=== PATIENT | female | born 1990 | race Asian ===

== ENCOUNTER 2022-05-02 13:40 | Emergency (ER) | payer OTHER, SELFPAY ==
[2022-05-02 13:53] VITALS: BP 120/70; PULSE 95; RESP 15; TEMP 36.7; O2SAT 100; BMI 27.4
[2022-05-02 14:13] LABS: UR Morphine/Opiate cutoff 300 Negative (Negative); Ur Creatinine Normal (Normal); Ur Specific Gravity Normal (Normal); Urine Amphetamines Negative (Negative); Urine Barbiturates Negative (Negative); Urine Benzodiazepines Negative (Negative); Urine Cocaine Negative (Negative); Urine MDMA Negative (Negative); Urine Methadone Negative (Negative); Urine Methamphetamines Negative (Negative); Urine Oxycodone Negative (Negative); Urine Phencyclidine Negative (Negative); Urine Tetrahydrocannabinol Negative (Negative); Urine Tricyclic Antidepressant Negative (Negative); Urine pH Normal (Normal)
[2022-05-02 14:23] LABS: Bacteria Urine Occasional (0-1); Culture Indicated Urine Specimen Cultured; RBC Urine None Seen (0-5/HPF); WBC Urine 0-1/HPF (0-5/HPF)
[2022-05-02 14:33] LABS: Add Manual Diff / Slide Review NO; Basophils Absolute Auto 0 /uL (0-100); Basophils Percent Auto 0.3 % (0-2); Eosinophils Absolute Auto 0 /uL (0-450); Eosinophils Percent Auto 0.8 % (2-4); Hematocrit 37.3 % (36-46); Hemoglobin 12.9 g/dL (12.0-16.0); Lymphocytes Absolute Auto 1900 /uL (1100-4500); Lymphocytes Percent Auto 32.1 % (25-40); Mean Corpuscular HGB Conc 34.7 % (30-36); Mean Corpuscular Volume 86.5 fL (80-100); Monocytes Absolute Auto 400 /uL (0-900); Monocytes Percent Auto 6.2 % (3-14); Neutrophils Absolute Auto 3500 /uL (1500-7000); Neutrophils Percent Auto 60.6 % (50-75); Platelet Count 202 X10^3/uL (150-400); Red Blood Cell Count 4.31 X10^6/uL (4.0-5.2); Red Cell Distribution Width 13.2 % (11.6-14.8); White Blood Cell Count 5.8 X10^3/uL (4.5-11.0)
--- NOTE | 2022-05-02 14:41 | ED_ITS ---
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 States that several months ago she started having thoughts of hurting herself. States she actually tried to kill herself by cutting her left wrist. She did not seek help during this time. Since that event she has followed up with [place] mental health department [place] [employer] [place]. She states she was not given any medication and cares no specific diagnoses. She is never been on any medication or had a mental health diagnosis in the past. Since following up with the mental health provider she has had other episodes of anxiety and depression and thoughts of hurting herself. She has [place] up with the director financial systems [place] Was last week after an event where her suicide ideations came back. Two days ago she found out that she was . This is her 2nd . She did tell the father the baby and she stated that the father baby wants nothing to do with this . That triggered more events over the past couple days. She denied any specific intent of hurting herself although she states she feels very unsafe at home and concern that she may act out on her thoughts. Related Data Allergies Allergy/AdvReac Type Severity Reaction Status Date / Time No Known Drug Allergies Allergy Verified 05/02/22 13:53 Review of Systems Review of Systems ROS Unobtainable: All systems reviewed & are unremarkable except as noted in HPI and below Patient History Medical History Healthy adult Social History Smoking Status: Former smoker Smoking Status: Former smoker alcohol intake frequency: holidays/special occasions only Substance Use Type: does not use Exam Initial Vital Signs Initial Vital Signs: Vital Signs Temperature 98.1 F 05/02/22 13:53 Pulse Rate 95 H 05/02/22 13:53 Respiratory Rate 15 05/02/22 13:53 Blood Pressure 120/70 05/02/22 13:53 Pulse Oximetry 100 05/02/22 13:53 Oxygen Delivery Method 05/02/22 13:53 Const General: cooperative, comfortable, well developed and No ill appearing HENNM Head: normal to inspection and normocephalic Resp Effort & Inspection: normal respiratory effort Auscultation: clear to auscultation bilaterally Cardio Rate: regular rate Rhythm: regular rhythm GI Inspection: normal to inspection Skin General: no rashes or lesions noted Neuro General: patient alert, patient awake, patient oriented x3 and moves all extremities Extrem General: normal to inspection and capillary refill normal Psych Appearance: grossly normal and well kempt Mental Status: mental status grossly normal Mood: congruent mood Affect: normal affect Attitude: cooperative Course Orders Ordered: ED Orders 05/02/22 14:00 Urine Culture Stat Urine Drug Screen, Rapid Stat Urine Microscopic Stat 05/02/22 14:21 Acetaminophen Stat Complete Blood Count AUTO DIFF Stat Comprehensive Metabolic Panel Stat Ethanol (ETOH) Stat Free T4, Direct Thyroxine Stat HCG Quantitative /Beta subunit Stat Salicylate Stat Thyroid Stimulating Hormone Stat 05/02/22 15:02 Consult to [facility] [place] - Alligator Trapper Stat 05/02/22 15:34 COVID19 -Nasal RAPID/Pre-Proc Stat Vital Signs Vital signs: Vital Signs - 8 hr 05/02/22 13:53 Temperature 98.1 F Pulse Rate 95 H Respiratory Rate 15 Blood Pressure 120/70 Pulse Oximetry 100 Oxygen Delivery Method Room Air MDM - Psych Lab Data Attestation: I reviewed the patient's lab results. Result diagrams: 05/02/22 14:21 05/02/22 14:21 Labs: Lab Results 05/02/22 05/02/22 05/02/22 Range/Units 14:00 14:00 14:21 WBC 5.8 (4.5-11.0) X10^3/uL RBC 4.31 (4.0-5.2) X10^6/uL Hgb 12.9 (12.0-16.0) g/dL Hct 37.3 (36-46) % MCV 86.5 (80-100) fL MCH 30.0 (26-34) PG MCHC 34.7 (30-36) % RDW 13.2 (11.6-14.8) % Plt Count 202 (150-400) X10^3/uL Neut % (Auto) 60.6 (50-75) % Lymph % (Auto) 32.1 (25-40) % [place] % (Auto) 6.2 (3-14) % Eos % (Auto) 0.8 L (2-4) % Baso % (Auto) 0.3 (0-2) % Neut # (Auto) 3500 (7491-2982) /uL Lymph # (Auto) 1900 (5555-6231) /uL [place] # (Auto) 400 (0-900) /uL Eos # (Auto) 0 (0-450) /uL Baso # (Auto) 0 (0-100) /uL Sodium (137-145) mmol/L Potassium (3.4-5.1) mmol/L Chloride (98-107) mmol/L Carbon Dioxide (22-32) mmol/L BUN (7-17) mg/dL Creatinine (0.52-1.04) mg/dL Estimated GFR (>60) mL/min BUN/Creatinine Ratio (6-22) Glucose (70-100) mg/dL Calcium (8.4-10.2) mg/dL Total Bilirubin (0.2-1.3) mg/dL AST (14-36) IU/L ALT (<35) IU/L Alkaline Phosphatase (38-126) U/L Total Protein (6.3-8.2) g/dL Albumin (3.5-5.0) g/dL Globulin (1.7-4.1) g/dL Albumin/Globulin Ratio (1.0-2.8) TSH (0.47-4.68) uIU/mL Free T4 (0.78-2.19) ng/dL HCG, Quant mIU/mL Urine RBC None seen (0-5/HPF) Urine WBC 0-1/hpf (0-5/HPF) Urine Bacteria Occasional (0-1) (None) Ur Culture Indicated? Specimen cultured Salicylates (<20) mg/dL U Opiates 300ng/mL cut Negative (Negative) Ur Oxycodone Screen Negative (Negative) Urine Methadone Screen Negative (Negative) Acetaminophen (10-30) ug/mL Ur Barbiturates Screen Negative (Negative) U Tricyclic Antidepress Negative (Negative) Ur Phencyclidine Scrn Negative (Negative) Ur Amphetamines Screen Negative (Negative) U Methamphetamines Scrn Negative (Negative) Ur MDMA Scrn (Ecstasy) Negative (Negative) U Benzodiazepines Scrn Negative (Negative) Urine Cocaine Screen Negative (Negative) U Marijuana (THC) Screen Negative (Negative) Ethyl Alcohol ( - 10) mg/dL SARS-CoV-2 (PCR) (Negative) 05/02/22 05/02/22 05/02/22 Range/Units 14:21 14:21 14:21 WBC (4.5-11.0) X10^3/uL RBC (4.0-5.2) X10^6/uL Hgb (12.0-16.0) g/dL Hct (36-46) % MCV (80-100) fL MCH (26-34) PG MCHC (30-36) % RDW (11.6-14.8) % Plt Count (150-400) X10^3/uL Neut % (Auto) (50-75) % Lymph % (Auto) (25-40) % [place] % (Auto) (3-14) % Eos % (Auto) (2-4) % Baso % (Auto) (0-2) % Neut # (Auto) (4127-1216) /uL Lymph # (Auto) (7853-5896) /uL [place] # (Auto) (0-900) /uL Eos # (Auto) (0-450) /uL Baso # (Auto) (0-100) /uL Sodium 135 L (137-145) mmol/L Potassium 3.5 (3.4-5.1) mmol/L Chloride 99 (98-107) mmol/L Carbon Dioxide 26 (22-32) mmol/L BUN 6 L (7-17) mg/dL Creatinine 0.60 (0.52-1.04) mg/dL Estimated GFR > 60 (>60) mL/min BUN/Creatinine Ratio 10.0 (6-22) Glucose 99 (70-100) mg/dL Calcium 9.0 (8.4-10.2) mg/dL Total Bilirubin 0.9 (0.2-1.3) mg/dL AST 21 (14-36) IU/L ALT 14 (<35) IU/L Alkaline Phosphatase 50 (38-126) U/L Total Protein 8.3 H (6.3-8.2) g/dL Albumin 4.8 (3.5-5.0) g/dL Globulin 3.5 (1.7-4.1) g/dL Albumin/Globulin Ratio 1.4 (1.0-2.8) TSH 0.988 (0.47-4.68) uIU/mL Free T4 1.43 (0.78-2.19) ng/dL HCG, Quant 3042.0 mIU/mL Urine RBC (0-5/HPF) Urine WBC (0-5/HPF) Urine Bacteria (None) Ur Culture Indicated? Salicylates < 1.0 (<20) mg/dL U Opiates 300ng/mL cut (Negative) Ur Oxycodone Screen (Negative) Urine Methadone Screen (Negative) Acetaminophen < 10 (10-30) ug/mL Ur Barbiturates Screen (Negative) U Tricyclic Antidepress (Negative) Ur Phencyclidine Scrn (Negative) Ur Amphetamines Screen (Negative) U Methamphetamines Scrn (Negative) Ur MDMA Scrn (Ecstasy) (Negative) U Benzodiazepines Scrn (Negative) Urine Cocaine Screen (Negative) U Marijuana (THC) Screen (Negative) Ethyl Alcohol < 10 ( - 10) mg/dL SARS-CoV-2 (PCR) (Negative) 05/02/22 Range/Units 15:34 WBC (4.5-11.0) X10^3/uL RBC (4.0-5.2) X10^6/uL Hgb (12.0-16.0) g/dL Hct (36-46) % MCV (80-100) fL MCH (26-34) PG MCHC (30-36) % RDW (11.6-14.8) % Plt Count (150-400) X10^3/uL Neut % (Auto) (50-75) % Lymph % (Auto) (25-40) % [place] % (Auto) (3-14) % Eos % (Auto) (2-4) % Baso % (Auto) (0-2) % Neut # (Auto) (3421-5196) /uL Lymph # (Auto) (5439-4280) /uL [place] # (Auto) (0-900) /uL Eos # (Auto) (0-450) /uL Baso # (Auto) (0-100) /uL Sodium (137-145) mmol/L Potassium (3.4-5.1) mmol/L Chloride (98-107) mmol/L Carbon Dioxide (22-32) mmol/L BUN (7-17) mg/dL Creatinine (0.52-1.04) mg/dL Estimated GFR (>60) mL/min BUN/Creatinine Ratio (6-22) Glucose (70-100) mg/dL Calcium (8.4-10.2) mg/dL Total Bilirubin (0.2-1.3) mg/dL AST (14-36) IU/L ALT (<35) IU/L Alkaline Phosphatase (38-126) U/L Total Protein (6.3-8.2) g/dL Albumin (3.5-5.0) g/dL Globulin (1.7-4.1) g/dL Albumin/Globulin Ratio (1.0-2.8) TSH (0.47-4.68) uIU/mL Free T4 (0.78-2.19) ng/dL HCG, Quant mIU/mL Urine RBC (0-5/HPF) Urine WBC (0-5/HPF) Urine Bacteria (None) Ur Culture Indicated? Salicylates (<20) mg/dL U Opiates 300ng/mL cut (Negative) Ur Oxycodone Screen (Negative) Urine Methadone Screen (Negative) Acetaminophen (10-30) ug/mL Ur Barbiturates Screen (Negative) U Tricyclic Antidepress (Negative) Ur Phencyclidine Scrn (Negative) Ur Amphetamines Screen (Negative) U Methamphetamines Scrn (Negative) Ur MDMA Scrn (Ecstasy) (Negative) U Benzodiazepines Scrn (Negative) Urine Cocaine Screen (Negative) U Marijuana (THC) Screen (Negative) Ethyl Alcohol ( - 10) mg/dL SARS-CoV-2 (PCR) Negative (Negative) Point of Care Testing Test Results Positive Urine Dip Bedside Urine Glucose Negative Bedside Urine Bilirubin - Negative Bedside Urine Ketone +/- 5 Urine Specific Donovan 1.010 Bedside Urine Occult Blood - Negative Bedside Urine pH 7.0 Bedside Urine Protein - Negative Bedside Urine Urobilinogen - Negative Bedside Urine Nitrite - Negative Bedside Urine Leukocytes +/- 15 Esterase MDM Narrative Medical decision making narrative: Patient is medically cleared. 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 Did discuss the case with the mental health providers at the [facility] who accepted patient for transfer. Patient is here with a worn officer from her command. Patient understands that she will be admitted to the mental health kay. That command is willing to drive her to the [facility]. She will be escorted by 2 individuals. They will go to the emergency department and then directed to the mental health kay. Discharge Plan Departure Patient Disposition: [facility] Clinical Impression: Suicidal ideation Activity Restrictions/Additional Instructions: Your being released under the care of your command to be driven to the [facility] for admission to the mental health kay. You are to go to their emergency department you will be directed to your inpatient kay.
[2022-05-02 14:42] LABS: Acetaminophen < 10 ug/mL (10-30); Alanine Aminotransferase 14 IU/L (<35); Albumin 4.8 g/dL (3.5-5.0); Albumin Globulin Ratio 1.4 (1.0-2.8); Alkaline Phosphatase 50 U/L (38-126); Aspartate Aminotransferase 21 IU/L (14-36); Bilirubin Total 0.9 mg/dL (0.2-1.3); Blood Urea Nitrogen 6 mg/dL (7-17); Carbon Dioxide 26 mmol/L (22-32); Chloride 99 mmol/L (98-107); Estimated Glomerular Filt Rate > 60 mL/min (>60); Ethanol (ETOH) < 10 mg/dL; Globulin 3.5 g/dL (1.7-4.1); Glucose 99 mg/dL (70-100); HEMOLYSIS < 15 (0-50); Potassium 3.5 mmol/L (3.4-5.1); Salicylate < 1.0 mg/dL (<20); Sodium 135 mmol/L (137-145); Total Protein 8.3 g/dL (6.3-8.2)
[2022-05-02 15:15] LABS: Free T4, Direct Thyroxine 1.43 ng/dL (0.78-2.19)
[2022-05-02 15:30] LABS: Thyroid Stimulating Hormone 0.988 uIU/mL (0.47-4.68)
[2022-05-02 16:02] LABS: COVID19 -Nasal RAPID Negative (Negative)
[2022-05-02 18:04] VITALS: BP 118/71; PULSE 96; RESP 24; O2SAT 99
== END 2022-05-02 18:01 | disposition short-term general hospital (02) ==
PROVIDERS: Emergency Provider Emergency Medicine
DX: R45.851 Suicidal ideations (principal); Z20.822 Contact with and (suspected) exposure to COVID-19; Z34.90 Encounter for supervision of normal pregnancy, unspecified, unspecified trimester
CPT/HCPCS: 36415; 80053; 80305; 80320; 80329; 81003; 81015; 81025; 84439; 84443; 84702; 85025; 87086; 87635; 99284; C9803; G0480

== ENCOUNTER → 2022-06-25 15:55 | Outpatient (CLI) | payer OTHER, SELFPAY ==
[2022-06-25 18:19] LABS: Appearance Urine UA CLEAR; Bilirubin Urine UA NEGATIVE (NEGATIVE); Color Urine UA YELLOW; Glucose Urine UA NEGATIVE (Negative); Ketones Urine UA NEGATIVE (NEGATIVE); Leukocyte Esterase Urine UA TRACE (NEGATIVE); Nitrite Urine UA NEGATIVE (Negative); Occult Blood Urine UA NEGATIVE (Negative); Protein Urine UA NEGATIVE (Negative); Specific Gravity Urine UA 1.015 (1.000-1.035); Urobilinogen Urine UA 0.2 E.U./dL (0.2)
[2022-06-25 18:24] LABS: pH Urine UA 7.5 (4.5-8.0)
[2022-06-25 18:44] LABS: Bacteria Urine Few (2-10); RBC Urine None Seen (0-5/HPF); Squamous Epithelial Cell Urine None Seen (0-5/HPF); WBC Urine 1-5/HPF (0-5/HPF)
[2022-06-25 19:26] LABS: Add Manual Diff / Slide Review NO; Basophils Absolute Auto 0 /uL (0-100); Basophils Percent Auto 0.3 % (0-2); Eosinophils Absolute Auto 100 /uL (0-450); Eosinophils Percent Auto 1.9 % (2-4); Hematocrit 34.6 % (36-46); Hemoglobin 11.7 g/dL (12.0-16.0); Lymphocytes Absolute Auto 1800 /uL (1100-4500); Lymphocytes Percent Auto 23.4 % (25-40); Mean Corpuscular HGB Conc 33.8 % (30-36); Mean Corpuscular Hemoglobin 29.9 PG (26-34); Mean Corpuscular Volume 88.3 fL (80-100); Monocytes Absolute Auto 400 /uL (0-900); Monocytes Percent Auto 5.5 % (3-14); Neutrophils Absolute Auto 5300 /uL (1500-7000); Neutrophils Percent Auto 68.9 % (50-75); Platelet Count 220 X10^3/uL (150-400); Red Blood Cell Count 3.91 X10^6/uL (4.0-5.2); White Blood Cell Count 7.8 X10^3/uL (4.5-11.0)
[2022-06-25 23:14] LABS: Urine N gonorrhoeae NOT DETECTED
[2022-06-25 23:22] LABS: Urine Chlamydia NOT DETECTED
[2022-06-27 07:09] LABS: RPR Screen Non Reactive (Non Reactive)
[2022-06-27 10:02] LABS: Varicella IgG Antibody 957 index (Immune >165)
[2022-06-27 16:24] LABS: Hepatitis B Surface Antigen NEGATIVE s/c (NEGATIVE)
[2022-06-27 16:43] LABS: HIV 1 & 2 Ab/Ag 4th Gen Combo NEGATIVE (NEGATIVE); Hep C Virus Ab w/Reflex Quant NEGATIVE s/c (NEGATIVE)
== END ==
PROVIDERS: Referring Provider Obstetrics & Gynecology; Visit Provider Obstetrics & Gynecology
DX: Z34.81 Encounter for supervision of other normal pregnancy, first trimester (principal); Z3A.12 12 weeks gestation of pregnancy; F32.A Depression, unspecified
CPT/HCPCS: 36415; 80055; 81003; 81015; 86787; 86803; 86850; 86900; 86901; 87077; 87086; 87147; 87389; 87491; 87591

== ENCOUNTER 2022-07-02 11:34 | Emergency (ER) | payer OTHER, SELFPAY ==
[2022-07-02 11:47] VITALS: BP 112/66; PULSE 99; RESP 15; TEMP 36.1; O2SAT 98; BMI 21.7
--- NOTE | 2022-07-02 11:56 | DI.US.S_ITS ---
PROCEDURE: US OB LIMITED INDICATIONS: BILATERAL PELVIC AND FLANK PAIN OUTSIDE/PRIOR DATING DATA: Last menstrual period (LMP): 03/24/2022. LMP-based estimated date of delivery (AMAN): 12/30/2022. First dating scan (date and location): 05/16/2022. [facility]. Estimated date of delivery (AMAN) from first dating scan: 01/01/2023. The calculations are made using the clinical AMAN of 12/30/2022. TECHNIQUE: Real-time scanning was performed of the fetus, with image documentation. COMPARISON: [facility], , US OB <= 14 WEEKS FETUS, 05/16/2022, 14:20. FINDINGS: A single living intrauterine gestation is present. Presentation: Variable. Placenta: Placental position is anterior. No retroplacental fluid is seen. Amniotic fluid index: Subjectively normal. heart rate: 160 beats per minute. Clinically estimated gestational age: 14 weeks 1 day Probable right corpus luteum. The left ovary is not well seen. Right kidney measures 12.8 cm. Left kidney measures 12.8 cm. No cortical thinning. No hydronephrosis. Urinary bladder is within normal limits. Ureteral jets are not well seen. IMPRESSION: 1. [place] living intrauterine at 14 weeks 1 day based on clinical dating. 2. No perigestational hemorrhage. No placental abruption. 3. No maternal hydronephrosis. Dictated by: Cedrick Maguire M.D. on 07/02/2022 at 14:02 Approved by: Cedrick Maguire M.D. on 07/02/2022 at 14:07
[2022-07-02 15:30] VITALS: BP 113/60; PULSE 80; O2SAT 99
--- NOTE | 2022-07-02 18:38 | ED.BACK ---
HPI - Back Pain/Injury <Amee Danielle PA-C - Last Filed: 07/02/22 19:33> General Chief Complaint: Urogenital-Female Stated Complaint: abd pain, hx uti, 14 weeks Time Seen by Provider: 07/02/22 18:35 Source: patient History of Present Illness HPI Narrative: 32-year-old female 14 weeks presents with concern for crampy pain both sides very low in her back and in her bladder area. She was diagnosed with UTI and has just started taking antibiotics for this she is taken 3 doses of Macrobid. Her urinary symptoms have been urgency and frequency and some burning with urination as well as a sensation that she still has to go even after she goes. She states in the last week or 2 she has noticed some increased nausea, some increased cramping and abdominal pains in general associated with her . She has had times where she has to stop what she is doing because the pain is too intense. She also has been having some pain and some slight swelling at the end of the day from wearing her heavy steel toed boots while working. She is and is on [place] [employer]. She denies fevers, persistent vomiting or nausea, diarrhea, flank pain, dark urine, or any other symptoms. Related Data Home Medications Medication Instructions Recorded Confirmed sertraline 50 mg tablet 50 mg PO DAILY 05/16/22 05/27/22 cholecalciferol (vitamin D3) 25 25 mcg PO DAILY 05/27/22 05/27/22 mcg (1,000 unit) capsule prenat.vits,romelia,zfn-voik-hgbse 1 tab PO DAILY 05/27/22 05/27/22 Allergies Allergy/AdvReac Type Severity Reaction Status Date / Time Penicillins AdvReac Mild unknown Verified 07/02/22 11:46 Review of Systems <Amee Danielle PA-C - Last Filed: 07/02/22 19:33> Review of Systems Narrative: Unremarkable except as noted in the HPI Patient History <Amee Danielle PA-C - Last Filed: 07/02/22 19:33> Medical History Depression Healthy adult Surgical History History of removal of skin mole [place] teeth extracted Family History Grandmother Diabetes mellitus Hypertension Depression Grandfather Medical history unknown Mother Hypertension Social History marital status: number of children: 0 household members: none lives independently: Yes [facility] pets and animals: No education level: college (phyllis's degree) occupational status: employed 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 ) special michel needs: No travel history: recent ([place]) seatbelt use: always water heater temp set < 120 deg: Yes working smoke detector in home: Yes fire extinguisher in home: Yes carbon monox detector in home: Yes firearms in home: No do you feel safe at home: Yes Smoking Status: Former smoker second hand exposure: No alcohol intake: former (socially on weekends when not ) substance use type: does not use during the past year weight has: increased > 10 lbs (~15 lb, combination of muscle and stress eating) well-balanced diet: daily or most days daily servings fruits/ve or more times/day caffeine: Yes (Aware of 200mg limit) Type(s) of exercise: aerobic, bicycling (stationary bike @gym) and weight lifting frequency: 3-4 times per week Smoking Status: Former smoker alcohol intake frequency: holidays/special occasions only Substance Use Type: does not use Exam <Amee Danielle PA-C - Last Filed: 07/02/22 19:33> Narrative Exam Narrative: GENERAL: 32 year old patient appears stated age. Well-developed patient, in mild distress. HEAD: Atraumatic. Normocephalic. EYES: Pupils equal round and reactive. Extraocular motions intact. No scleral icterus. No injection or drainage. ENT: Nose without bleeding, purulent drainage. Airway patent. NECK: Trachea midline. Non tender CARDIOVASCULAR: Regular rate and rhythm without murmurs, gallops, or rubs. RESPIRATORY: Clear to auscultation. Breath sounds equal bilaterally. No wheezes, rales, or rhonchi. GASTROINTESTINAL: Abdomen soft, there is slight tenderness suprapubically, there is slight tenderness on the left lower quadrant otherwise non-tender, nondistended, there is no CVA tenderness, there is some tenderness with palpation just above and lateral to the iliac crest bilaterally. EXTREMITIES: No edema or joint tenderness. BACK: Nontender without deformity or crepitance. No flank tenderness. NEURO: AOx3. SKIN: No rash or erythema of visible areas Initial Vital Signs Initial Vital Signs: Vital Signs Temperature 97.0 F L 07/02/22 11:47 Pulse Rate 99 H 07/02/22 11:47 Respiratory Rate 15 07/02/22 11:47 Blood Pressure 112/66 07/02/22 11:47 Pulse Oximetry 98 07/02/22 11:47 Oxygen Delivery Method 07/02/22 11:47 <Bk Monique MD - Last Filed: 07/03/22 06:34> Initial Vital Signs Initial Vital Signs: Vital Signs Temperature 97.0 F L 07/02/22 11:47 Pulse Rate 99 H 07/02/22 11:47 Respiratory Rate 15 07/02/22 11:47 Blood Pressure 112/66 07/02/22 11:47 Pulse Oximetry 98 07/02/22 11:47 Oxygen Delivery Method 07/02/22 11:47 Course <Amee Danielle PA-C - Last Filed: 07/02/22 19:33> Orders Ordered: Discontinued Medications Acetaminophen (Acetaminophen 325 Mg Tablet) 650 mg PO NOW ONE Stop: 07/02/22 19:33 Last Admin: 07/02/22 19:36 Dose: 650 mg Documented By: GARRETT Vital Signs Vital signs: Vital Signs - 8 hr 07/02/22 11:47 07/02/22 15:30 Temperature 97.0 F L Pulse Rate 99 H 80 Respiratory Rate 15 Blood Pressure 112/66 113/60 Pulse Oximetry 98 99 Oxygen Delivery Method Room Air Room Air <Bk Monique MD - Last Filed: 07/03/22 06:34> Orders Ordered: Discontinued Medications Acetaminophen (Acetaminophen 325 Mg Tablet) 650 mg PO NOW ONE Stop: 07/02/22 19:33 Last Admin: 07/02/22 19:36 Dose: 650 mg Documented By: GARRETT Vital Signs Vital signs: Vital Signs - 8 hr 07/02/22 11:47 07/02/22 15:30 Temperature 97.0 F L Pulse Rate 99 H 80 Respiratory Rate 15 Blood Pressure 112/66 113/60 Pulse Oximetry 98 99 Oxygen Delivery Method Room Air Room Air MDM - Back Pain/Injury <Amee Danielle PA-C - Last Filed: 07/02/22 19:33> Lab Data Labs: Lab Results 07/02/22 Range/Units 19:39 Urine RBC 1-5/hpf (0-5/HPF) Urine WBC 5-10/hpf H (0-5/HPF) Ur Squamous Epith Cells 5-10 /hpf H (0-5/HPF) Amorphous Sediment 1+ Urine Bacteria Few (2-10) H (None) Ur Culture Indicated? Specimen cultured Imaging Data US - OB: Radiologist's Impression: [address] [address] Ultrasound Report Signed Patient: Vamsi Plata MR#: [id number] : 1990 Acct:[id number] Age/Sex: 32 / F Date of Service: 07/02/22 Loc: ED Accession Number: [id number] ?? Procedure: US OB limited Ordering Provider: Johnna aHrt D.O. PROCEDURE:? US OB LIMITED ? INDICATIONS:? BILATERAL PELVIC AND FLANK PAIN ? OUTSIDE/PRIOR DATING DATA:? Last menstrual period (LMP):? 03/24/2022.? LMP-based estimated date of delivery (AMAN):? 12/30/2022.? First dating scan (date and location):? 05/16/2022.? [facility].? Estimated date of delivery (AMAN) from first dating scan:? 01/01/2023. The calculations are made using the clinical AMAN of 12/30/2022.? ? TECHNIQUE: Real-time scanning was performed of the fetus, with image documentation.? ? COMPARISON:? [facility], , US OB <= 14 WEEKS FETUS, 05/16/2022, 14:20. ? FINDINGS:? A single living intrauterine gestation is present.? Presentation:? Variable.? Placenta:? Placental position is anterior.? No retroplacental fluid is seen. Amniotic fluid index:? Subjectively normal. heart rate:? 160 beats per minute.? ? Clinically estimated gestational age:? 14 weeks 1 day ? Probable right corpus luteum.? The left ovary is not well seen.? Right kidney measures 12.8 cm. Left kidney measures 12.8 cm.? No cortical thinning.? No hydronephrosis.? Urinary bladder is within normal limits.? Ureteral jets are not well seen.? ? ? IMPRESSION:? 1. [place] living intrauterine at 14 weeks 1 day based on clinical dating. ? 2. No perigestational hemorrhage.? No placental abruption. ? 3. No maternal hydronephrosis. ? ? Dictated by: Cedrick Maguire M.D. on 07/02/2022 at 14:02 ? ? Approved by: Cedrick Maguire M.D. on 07/02/2022 at 14:07?? MDM Narrative Medical decision making narrative: 32-year-old female 14 weeks presents with concern for crampy pain in the setting of UTI and 14 weeks . Patient just started Macrobid which is appropriate to treat her staph saprophyticus infection has had 3 doses of this. She feels her urinary symptoms have not improved yet. Also states for the past week or so she is been having crampy pain low down on the sides in her back and on the very outside of her low belly mostly on the left. Exam today is not suggestive of appendicitis or other acute intra-abdominal process. Vitals are unremarkable. Additional labs not obtained today however a OB ultrasound is obtained given her abdominal pain and low back discomfort and this is unremarkable. Suspect that the patient has a combination of some discomfort related to her UTI as well as some discomfort related to normal progression of and round ligament pain. I have low suspicion for pyelonephritis based on exam, history. Urine sent for culture today again for further evaluation. However patient is counseled that she should seek medical care immediately or return to the emergency department if she does feel she has new or worsening symptoms. Return precautions provided, follow-up plan discussed, all questions answered. <Bk Monique MD - Last Filed: 07/03/22 06:34> Lab Data Labs: Lab Results 07/02/22 Range/Units 19:39 Urine RBC 1-5/hpf (0-5/HPF) Urine WBC 5-10/hpf H (0-5/HPF) Ur Squamous Epith Cells 5-10 /hpf H (0-5/HPF) Amorphous Sediment 1+ Urine Bacteria Few (2-10) H (None) Ur Culture Indicated? Specimen cultured Discharge Plan Departure Patient Disposition: Home Clinical Impression: , UTI (urinary tract infection) Instructions: Urinary Tract Infection Activity Restrictions/Additional Instructions: Thank you for letting us be part of your care today on a very busy day in the emergency department. Your ultrasound today of your looks good. You have a UTI and has been taking oral antibiotics for 3 doses now, based on previous culture results obtained the antibiotic that you have been taking is appropriate to treat your infection. You should continue to take the antibiotic that you were prescribed. I think that some of your pain and discomfort is related to pains as her uterus is growing. I recommend Tylenol for cramping type pain and have provided a work note regarding some accommodations that should be made for you. Of course if you feel your symptoms are worsening if you have fevers, worsening abdominal or back pain, any worsening of your urinary symptoms or any vaginal bleeding you should seek medical care immediately. There is no evidence of an emergent or life threatening illness at this time, but follow up with your doctor in 1-2 days is recommended nonetheless to continue to rule out serious underlying causes of your symptoms. Please call the office for an appointment. Please return to the Emergency Department for any worsening or persistent symptoms. Please take medications as directed. I recommend that due to your cramping that you are experiencing if you do have episodes where he failure unable to do your job due to discomfort or pain unable to stand drive or walk you should definitely take a break and rest and should be allowed to do this. In addition since you have been having some foot discomfort and slight swelling sometimes the end of the day I strongly recommend that you be allowed to wear tennis shoes for a period of time rather than your steel-toed boots. Prescriptions: No Action sertraline 50 mg tablet 50 mg PO DAILY prenat.vits,romelia,[id number]-liar-tzrqz Tablet 1 tab PO DAILY cholecalciferol (vitamin D3) 25 mcg (1,000 unit) capsule 25 mcg PO DAILY Referrals: Provider,Radha RUSH [Primary Care Provider] - Stand Alone Forms: Work Release Note Visit Report Forms: Patient Portal/API <Bk Monique MD - Last Filed: 07/03/22 06:34> Cosign ED Attending Brookeature Attestation: I was immediately available in the department for consultation. ?This documentation has been reviewed and I agree with assessment and plan. Supervised by Bk Monique MD
--- NOTE | 2022-07-02 18:41 | PC.NURSE ---
pt states she still has low back pain that she went to [facility] for yesterday, pt given antibiotics, has taken a total of 3 macrobid. she was told they were going to sent it out for further testing because she was taking AZO. pt states she had to stand for work, pt states then her back started to hurt worse, and she felt dizzy for a moment.
[2022-07-02] MEDS: ACETAMINOPHEN 325 MG TABLET 650 MG PO (19:36)
[2022-07-02 20:09] LABS: Amorphous Sediment Urine 1+; Bacteria Urine Few (2-10); Culture Indicated Urine Specimen Cultured; RBC Urine 1-5/HPF (0-5/HPF); Squamous Epithelial Cell Urine 5-10 /HPF (0-5/HPF); WBC Urine 5-10/HPF (0-5/HPF)
== END 2022-07-02 19:41 | disposition home or self-care (01) ==
PROVIDERS: Emergency Provider Student in an Organized Health Care Education/Training Program
DX: O23.42 Unspecified infection of urinary tract in pregnancy, second trimester (principal); N39.0 Urinary tract infection, site not specified; Z3A.14 14 weeks gestation of pregnancy
CPT/HCPCS: 76815; 81015; 87086; 99283

== ENCOUNTER → 2022-07-30 14:34 | Outpatient (CLI) | payer OTHER, SELFPAY ==
[2022-08-02 09:22] LABS: AFP Value 43.4 ng/mL (.); Gest Age on Col Date 17.6 weeks (.); Insulin Dep Diabetes No (.); OSBR Risk 1IN 10000 (.); Results Report (.); Test Results *Screen Negative* (.)
[2022-08-15 15:21] LABS: PDF SEE SCANS
== END ==
PROVIDERS: Referring Provider Obstetrics & Gynecology; Visit Provider Obstetrics & Gynecology
DX: Z34.82 Encounter for supervision of other normal pregnancy, second trimester (principal); Z3A.17 17 weeks gestation of pregnancy
CPT/HCPCS: 36415; 82105

== ENCOUNTER → 2022-08-22 15:54 | Outpatient (CLI) | payer OTHER, SELFPAY ==
--- NOTE | 2022-08-22 15:56 | DI.US.S_ITS ---
PROCEDURE: US OB >= 14 WEEKS FETUS INDICATIONS: 20 Week Anatomy Scan OUTSIDE/PRIOR DATING DATA: Last menstrual period (LMP): 03/24/22. LMP-based estimated date of delivery (AMAN): 12/30/22. First dating scan (date and location): 05/16/22. Estimated date of delivery (AMAN) from first dating scan: 01/01/23. The calculations are made using the ultrasound AMAN of 01/01/23. TECHNIQUE: Real-time scanning was performed of the fetus, with image documentation and biometric measurements. Endovaginal scanning: Not performed COMPARISON: None. FINDINGS: General: A single living intrauterine gestation is present. Presentation: Cephalic. Placenta: Placental position is anterior , without previa. Amniotic fluid index: 15.3 cm, normal range is 5-24 cm. Single deepest vertical pocket is 4.2 cm. heart rate: 149 beats per minute. Maternal cervical canal: Closed and 5.6 cm long. Normal lower limit is 2.5 cm. biometrics: Biparietal diameter: 4.8 cm, 20 weeks, three days Head circumference: 18.1 cm, 20 weeks, four days Abdominal circumference: 16.3 cm, 21 weeks, three days Femur length: 3.6 cm, 21 weeks, three days Clinically estimated gestational age: 21 weeks, one day Composite gestational age from present scan: 21 weeks, 0 days Estimated weight and percentile: 412 g, 52 nd percentile Anatomic survey: Neuro: Ventricles are non-dilated at less than 10 mm. Cisterna magna is normal at 3-11 mm. Cerebellum is normal in size and morphology. Nuchal skin fold: Normal at less than 6 mm between 14-21 weeks gestational age. Face: Nose and lips, facial profile are normal. Spine: No evidence for spina bifida. Heart: 4-chambered heart is present, with normal ventricular outflow tracts. Diaphragm: Diaphragm is intact. Stomach: Left-sided stomach is present. Kidneys: No hydronephrosis. Normal is less than 5 mm in 2nd trimester, less than 7 mm in 3rd trimester. Cord: 3-vessel cord has orthotopic insertion. Bladder: Normal in size. Extremities: All 4 extremities identified. IMPRESSION: 1. Single living intrauterine . 2. Symmetric growth and normal anatomy. 3. Estimated weight at the 52nd percentile. 4. Closed cervix and normal amniotic fluid volume. We strive to produce accurate, complete, and clear reports of imaging services. To assist us in improving patient care, this report was composed using standard report templates and voice recognition software. Therefore, it may contain abnormal punctuation, insertions and/or omissions. Occasional wrong-word or sound-alike substitutions may occur. Though we review the report and make efforts to correct it, we do recommend that the report be read carefully in proper context to recognize any text inaccuracies. Dictated by: Nikia Candelario M.D. on 08/22/2022 at 17:31 Approved by: Nikia Candelario M.D. on 08/22/2022 at 17:35
== END ==
PROVIDERS: Referring Provider Obstetrics & Gynecology; Visit Provider Obstetrics & Gynecology
DX: Z34.82 Encounter for supervision of other normal pregnancy, second trimester (principal); Z3A.21 21 weeks gestation of pregnancy
CPT/HCPCS: 76811

== ENCOUNTER → 2022-08-27 13:43 | Outpatient (CLI) | payer OTHER, SELFPAY | PROVIDERS: Visit Provider Obstetrics & Gynecology | DX: Z34.82 Encounter for supervision of other normal pregnancy, second trimester (principal); R39.9 Unspecified symptoms and signs involving the genitourinary system | CPT/HCPCS: 87086 ==

== ENCOUNTER → 2022-11-13 14:17 | Outpatient (CLI) | payer OTHER, SELFPAY ==
[2022-11-13 16:41] LABS: Hematocrit 29.9 % (36-46); Hemoglobin 10.2 g/dL (12.0-16.0)
[2022-11-13 17:04] LABS: GTT (PREG) 1 Hour PP 50gm Dose 88 mg/dL (76-139)
== END ==
PROVIDERS: Referring Provider Obstetrics & Gynecology; Visit Provider Obstetrics & Gynecology
DX: Z34.82 Encounter for supervision of other normal pregnancy, second trimester (principal); Z3A.26 26 weeks gestation of pregnancy
CPT/HCPCS: 36415; 82950; 85014; 85018

== ENCOUNTER 2022-11-13 15:55 | Outpatient (CLI) | payer OTHER, SELFPAY | END 2022-11-13 16:35 | disposition home or self-care (01) | LOC: LABOR 16:40 → OB 11-15 15:23 | PROVIDERS: Referring Provider Obstetrics & Gynecology; Visit Provider Obstetrics & Gynecology | DX: O26.893 Other specified pregnancy related conditions, third trimester (principal); R10.9 Unspecified abdominal pain; Z3A.32 32 weeks gestation of pregnancy; Z34.82 Encounter for supervision of other normal pregnancy, second trimester; Z3A.26 26 weeks gestation of pregnancy | CPT/HCPCS: 36415; 59025; 82950; 85014; 85018; G0378; G0379 ==

== ENCOUNTER → 2022-11-25 09:49 | Outpatient (CLI) | payer OTHER, SELFPAY ==
--- NOTE | 2022-11-25 09:50 | DI.US.S_ITS ---
PROCEDURE: US OB LIMITED INDICATIONS: SIZE LESS THAN DATES OUTSIDE/PRIOR DATING DATA: Last menstrual period (LMP): March 24, 2022. LMP-based estimated date of delivery (AMAN): December 30, 2022. First dating scan (date and location): May 16, 2022. Estimated date of delivery (AMAN) from first dating scan: January 01, 2023. TECHNIQUE: Real-time scanning was performed of the fetus, with image documentation and biometric measurements. Endovaginal scanning: Not performed COMPARISON: [facility], OB LIMITED, 07/02/2022, 12:05. FINDINGS: General: A single living intrauterine gestation is present. Presentation: Vertex Placenta: Placental position is anterior , without previa. Amniotic fluid index: 15.3 cm, normal range is 5-24 cm. Single deepest vertical pocket is 6.7 cm. heart rate: 137 beats per minute. Maternal cervical canal: Not visualized biometrics: Biparietal diameter: 8.3 cm, 33 weeks, 4 days Head circumference: 31.5 cm, 35 weeks, 2 days Abdominal circumference: 29.6 cm, 33 weeks, 4 days Femur length: 6.7 cm, 34 weeks, 5 days Clinically estimated gestational age: 34 weeks, 3 days Composite gestational age from present scan: 34 weeks, 2 days Estimated weight and percentile: 2342 g, 34% Other: Not applicable. IMPRESSION: Single live intrauterine gestation with a gestational age of 34 weeks, 2 days which is concordant with the dates by initial study. Dictated by: Yesika Zamarripa M.D. on 11/25/2022 at 15:23 Approved by: Yesika Zamarripa M.D. on 11/25/2022 at 15:31
== END ==
PROVIDERS: Referring Provider Obstetrics & Gynecology; Visit Provider Obstetrics & Gynecology
DX: O26.843 Uterine size-date discrepancy, third trimester (principal); Z3A.34 34 weeks gestation of pregnancy
CPT/HCPCS: 76815

== ENCOUNTER → 2022-12-11 15:17 | Outpatient (CLI) | payer OTHER, SELFPAY ==
[2022-12-12 15:24] LABS: Strep Grp B PCR NEG for Grp B Strep
== END ==
PROVIDERS: Visit Provider Obstetrics & Gynecology
DX: Z34.83 Encounter for supervision of other normal pregnancy, third trimester (principal); Z3A.36 36 weeks gestation of pregnancy
CPT/HCPCS: 87653

== ENCOUNTER 2022-12-20 21:51 | Inpatient (IN) | payer OTHER, SELFPAY ==
--- NOTE | 2022-12-20 22:29 | PM.OBHP.IH.1 ---
OB HPI Date/Time Date of admission: 12/20/22 Date Patient Seen: 12/20/22 Time Patient Seen: 22:29 History of Present Condition Chief complaint: L&D AMAN Calculator Estimated Delivery Date Method Current WG Current Estimate 01/03/23 LMP (Certain) 38w 1d Other Estimates 01/01/23 Ultrasound #1 38w 3d : 2 Para: 0 Narrative: 32YO @ 38wks 1day by LMP concordant with early ultrasound here for evaluation of PROM. Had a gush of clear fluid at 5:00pm, followed by continued leaking fluid. Feeling occasional mild cramping. Noticed a large mucus discharge with scant red blood, no continued vaginal bleeding. +FM. Uncomplicated care with . Open to options for labor anesthesia. Accompanied by a friend. care: good care, initiated at week # (12), number of visits (8) and pounds weight gain (36) Dating criteria OB: LMP confirmed by 1st trimester US Ultrasounds: normal mid trimester US Obstetrical complications: none Medical complications OB: none Preadmission Labs Last OB Lab Results: Blood Type O Positive 12/20/22 22:58 Antibody Screen Negative 12/20/22 22:58 Hematocrit 31.3 % (36-46) L 12/20/22 22:58 Hemoglobin 10.6 g/dL (12.0-16.0) L 12/20/22 22:58 Hepatitis B Surface Antigen Negative s/c (NEGATIVE) 06/25/22 16:40 Hepatitis C Antibody Negative s/c (NEGATIVE) 06/25/22 16:40 Rubella Antibody 151.0 IU/mL (>15) 06/25/22 16:40 Varicella-Zoster IgG Antibody 957 index (Immune >165) 06/25/22 16:40 Glucose 1 Hour 88 mg/dL (76-139) 11/13/22 14:22 Group B Streptococcus (PCR) Neg for grp b strep 12/11/22 15:17 Prior (ies) Past Pregnancies Del. Date GA/Weeks Labor Lgth Wt Sex Route Outcome Anesthesia Place Delv Breastfeed Preg Comp Name 04/20/20 4+ spontaneous Delivery Date: 04/20/20 Last Updated by: Patricia Santos RN no complications, passed spontaneously Evaluation Evaluation Baseline heart rate: 125 Variability: Moderate (11-25) monitor accelerations: Present Monitor Decelerations: Absent Contraction Frequency (minutes): 10 Uterine Contraction Intensity: Mild Non-invasive Membranes Rupture Test: positive Comments: CE deferred [facility] Medical History Depression Healthy adult Surgical History History of removal of skin mole [place] teeth extracted Family History Grandmother Diabetes mellitus Hypertension Depression Grandfather Medical history unknown Mother Hypertension Social History marital status: number of children: 0 household members: none lives independently: Yes [facility] pets and animals: No education level: college (phyllis's degree) occupational status: employed 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 ) special michel needs: No travel history: recent ([place]) seatbelt use: always water heater temp set < 120 deg: Yes working smoke detector in home: Yes fire extinguisher in home: Yes carbon monox detector in home: Yes firearms in home: No do you feel safe at home: Yes Smoking Status: Never smoker second hand exposure: No alcohol intake: former (socially on weekends when not ) substance use type: does not use during the past year weight has: increased > 10 lbs (~15 lb, combination of muscle and stress eating) well-balanced diet: daily or most days daily servings fruits/ve or more times/day caffeine: Yes (Aware of 200mg limit) Type(s) of exercise: aerobic, bicycling (stationary bike @gym) and weight lifting frequency: 3-4 times per week Meds Home Medications and Allergies Home Medications Medication Instructions Recorded Confirmed Type sertraline 50 mg tablet 50 mg PO DAILY 05/16/22 12/20/22 History Allergies Allergy/AdvReac Type Severity Reaction Status Date / Time Penicillins AdvReac Mild unknown Verified 12/20/22 23:57 Review of Systems Review of Systems ROS: Yes All systems reviewed with the patient and are negative except as otherwise documented OB Exam Resp Effort & Inspection: normal respiratory effort and able to speak in complete sentences Auscultation: clear to auscultation bilaterally Cardio Rate: regular rate Rhythm: regular rhythm Heart Sounds: S1 normal and S2 normal Presentation: vertex Objective Labs 12/20/22 22:58 Assessment and Plan Assessment and Plan Assessment and Plan narrative: A: Term [place] PROM x 5 hours without sx of infection No indiction for GBS prophylaxis Cat I FHR P: Counseled on options for active vs expectant management of PROM and patient elects active management. Admit routine orders with pitocin, per protocol. Labor suppport PRN. Epidural if requested. Reassess after 2 hours of strong contractions or sooner, PRN.
[2022-12-20 23:25] LABS: Add Manual Diff / Slide Review NO; Basophils Absolute Auto 0 /uL (0-100); Basophils Percent Auto 0.3 % (0-2); Eosinophils Absolute Auto 100 /uL (0-450); Eosinophils Percent Auto 1.1 % (2-4); Hematocrit 31.3 % (36-46); Hemoglobin 10.6 g/dL (12.0-16.0); Lymphocytes Absolute Auto 1900 /uL (1100-4500); Lymphocytes Percent Auto 21.6 % (25-40); Mean Corpuscular HGB Conc 33.9 % (30-36); Mean Corpuscular Hemoglobin 27.8 PG (26-34); Monocytes Absolute Auto 500 /uL (0-900); Monocytes Percent Auto 5.7 % (3-14); Neutrophils Absolute Auto 6400 /uL (1500-7000); Neutrophils Percent Auto 71.3 % (50-75); Platelet Count 191 X10^3/uL (150-400); Red Blood Cell Count 3.82 X10^6/uL (4.0-5.2); Red Cell Distribution Width 16.2 % (11.6-14.8)
[2022-12-21] MEDS: LACTATED RINGERS 1,000 ML 100 ML IV ×2 (00:45→11:58)
[2022-12-21] MEDS: OXYTOCIN PREMIX 30 UNIT/500 ML PLAST..BAG IV (00:45)
[2022-12-21] MEDS: fentaNYL 100 MCG/2 ML INJ IV ×2 (04:38→19:52)
[2022-12-21] MEDS: FENT 2MCG/ML BUPIV 0.125% EPI 200 MCG/100 ML PLAST..BAG 6 MCG EPIDURAL ×2 (06:45→14:34)
--- NOTE | 2022-12-21 07:08 | PM.AN.REGBLK ---
Regional Block Pre-procedure Procedure: Continuous Lumbar Epidural for L&D Attending OB provider: Sally Avila PMH/ROS narrative: term labor, no complications. No significant PMH. ASA Class: II Labs: Hct 31.3 % (36-46) L 12/20/22 22:58 Plt Count 191 X10^3/uL (150-400) 12/20/22 22:58 Medications: Current Medications Generic Name Dose Route Start Last Admin Trade Name Freq PRN Reason Stop Dose Admin Calcium Carbonate 1,000 mg 12/20/22 22:25 Calcium Carbonate 500 Mg Tab PO Q4HR PRN Dyspepsia Carboprost Tromethamine 250 mcg 12/20/22 22:25 Carboprost 250 Mcg/Ml Ampul IM Q90M PRN Bleeding Diphenhydramine HCl 25 mg 12/21/22 06:35 Diphenhydramine 50 Mg/Ml Vial IV Q10M PRN Pruritis Fentanyl 100 mcg 12/20/22 22:25 12/21/22 04:38 Fentanyl 100 Mcg/2 Ml Inj IV 100 mcg Q1H PRN Administration Pain, Severe (7-10) Oxytocin/Lactated Ringer's 30 unit in 500 mls @ 200 mls/hr 12/20/22 22:25 Oxytocin Premix IV CONT PRN Bleeding Protocol Tranexamic Acid 1,000 mg/ 100 mls @ 200 mls/hr 12/20/22 22:25 Sodium Chloride IV NOW PRN Bleeding Oxytocin/Lactated Ringer's 30 unit in 500 mls @ 2 mls/hr 12/20/22 22:30 12/21/22 00:45 Oxytocin Premix IV 2 milliunit/min TITRATE RENATO 2 mls/hr Administration Protocol 2 MILLIUNIT/MIN Lactated Ringer's 1,000 mls @ 100 mls/hr 12/20/22 22:30 12/21/22 00:45 Lactated Ringers IV 100 mls/hr CONT RENATO Administration FENT 2MCG/ML BUPIV 0.125% EPI 200 mcg in 100 mls @ 6 mls/hr 12/21/22 06:45 Fentanyl/Bupiv/Ns 2mcg/Ml - 0.125% EPIDURAL CONT RENATO Lidocaine HCl 20 ml 12/20/22 22:25 Lidocaine 1% 20 Ml INJ INTRA-OP PRN Post Delivery Methylergonovine Maleate 0.2 mg 12/20/22 22:25 Methylergonovine 0.2 Mg Tablet PO Q6HR PRN Heavy Bleeding Methylergonovine Maleate 0.2 mg 12/20/22 22:25 Methylergonovine 0.2 Mg/Ml Vial IM NOW PRN Bleeding Misoprostol 800 mcg 12/20/22 22:25 Misoprostol 200 Mcg Tablet OH NOW PRN Bleeding Misoprostol 400 mcg 12/20/22 22:25 Misoprostol 200 Mcg Tablet SL NOW PRN Bleeding Nalbuphine HCl 2.5 mg 12/21/22 06:35 Nalbuphine 20 Mg/Ml Ampul IV Q10M PRN Pruritis Naloxone HCl 0.2 mg 12/20/22 22:25 Naloxone 0.4 Mg/Ml Vial IV Q2MIN PRN Opiate Reversal Ondansetron HCl 4 mg 12/20/22 22:25 Ondansetron 4 Mg/2 Ml Inj IV Q4HR PRN Nausea And Vomiting Oxytocin 10 unit 12/20/22 22:25 Oxytocin 10 Unit/Ml Vial IM NOW PRN Bleeding Allergies: Allergies Allergy/AdvReac Type Severity Reaction Status Date / Time Penicillins AdvReac Mild unknown Verified 12/20/22 23:57 Procedure Insertion date: 12/21/22 Insertion time: 06:50 Prep/Local: betadine x3 and 1% lidocaine Interspace: L3-4 Patient position: sitting Needle: 18 gauge Hustead (CSE: 27g Pencan through Hustead, clear CSF, 2.5mg MPF bupiv) Loss of resistance with: saline AUDELIA at (cm): 5 Catheter placed at SKIN (cm): 10 Catheter in SPACE (cm): 5 Insertion: No CSF, No Blood, No Paresthesia with insertion, No Paresthesia with injection and No Test dose reaction Initial Medications TEST DOSE time: 06:51 TEST DOSE: 1.5% lidocaine with epinephrine 1:200k (mL): 3 Infusion INFUSION: 0.125% bupivacaine and with fentanyl 2 mcg/mL Initial rate (mL/hr): 6 Subsequent interventions: PCEA started at 8/4 1450 5mL 2% lidocaine, rate to 10/5 1830 3mL 0.25% bupiv Post-procedure Anesthesia time START: 06:38 Anesthesia time END: 19:20 Post-procedure Anesthesia Assessment: Yes CV function: HR/BP stable, Yes Resp function: RR/sat/airway adequate, Yes Post-op hydration adequate, Yes Pain control adequate, Yes Nausea & vomiting absent, Yes Temperature > 36 C, Yes Mental status appropriate and No Anesthesia complications
--- NOTE | 2022-12-21 09:50 | PM.OBPNLAB ---
Date/Time Date Patient Seen: 12/21/22 Time Patient Seen: 06:00 Pain Control Pain control: narcotic analgesia (with minimal relief) Comments: Has been k[place] painfully for 2 hours. Received a dose of fentanyl at 0438, which helped for a few minutes, but not for long. VS: BP 111/62mmHg, HR 73, T 36.4C Temporal Pelvic Exam Dilation (cm): 1 Effacement (%): 80 station: -2 Amniotic membrane status: Leaking (clear) Comments: CE by RN prior to fentanyl dose Contractions Contractions on admission: irregular Monitor mode: External Pitocin rate (mU/min): 4 Contraction frequency (min): 3 Contraction duration (min): 1 Contraction pattern: Regular Contraction intensity: Mild Status status: Category l Heart Rate Baseline: 125 Monitor Accelerations: Present Monitor Decelerations: Absent Monitor Variability: Moderate Assessment and Plan Assessment: other (Active management of PROM, approaching active labor) Plan: continuous present management Comments: Epidural when requested. Reassess in 4 hours or sooner, PRN.
--- NOTE | 2022-12-21 10:17 | PM.OBPNLAB ---
Date/Time Date Patient Seen: 12/21/22 Time Patient Seen: 10:17 Pain Control Pain control: epidural (complete relief) Comments: Happy with epidural and has been able to sleep. VS: BP 101/57, HR 80bpm, T 35.7C Temporal Pelvic Exam Dilation (cm): 6 Effacement (%): 90 station: -1 Amniotic membrane status: Leaking (clear) Comments: AROM forebag, copious clear fluid Bloody show present Contractions Monitor mode: External Pitocin rate (mU/min): 6 Contraction frequency (min): 3 Contraction duration (min): 1 Contraction pattern: Regular Contraction intensity: Strong/Firm Status status: Category l Heart Rate Baseline: 125 Monitor Accelerations: Present Monitor Decelerations: Absent Monitor Variability: Moderate Assessment and Plan Assessment: active labor and other (PROM x 17 hours without sx of infection) Plan: continuous present management Comments: Reassess in 4 hours or sooner, PRN.
--- NOTE | 2022-12-21 14:09 | PM.OBPNLAB ---
Date/Time Date Patient Seen: 12/21/22 Time Patient Seen: 14:09 Pain Control Pain control: epidural (coping well) Comments: Had a period of pain in her LLQ now moved to low and centered after multiple position changes. Currently in [place] with her mother at her side. VS: BP 127/74mmhg, HR 91bpm, T 37.3 Pelvic Exam Dilation (cm): 8 Effacement (%): 100 station: 0 Amniotic membrane status: Leaking (clear) Comments: bloody show present Contractions Monitor mode: External Pitocin rate (mU/min): 6 Contraction frequency (min): 2 Contraction duration (min): 1 Contraction pattern: Regular Contraction intensity: Strong/Firm Status status: Category l Heart Rate Baseline: 135 Monitor Accelerations: Present Monitor Decelerations: Absent Monitor Variability: Moderate Assessment and Plan Assessment: active labor Plan: continuous present management Comments: Reassess in 4 hours or sooner, PRN.
[2022-12-21] MEDS: miSOPROStoL 200 MCG TABLET 400 MCG SL (19:34)
--- NOTE | 2022-12-21 20:42 | PM.OBPRVD ---
Events: Labor Augmentation, Premature Rupture Membrane and Prolonged Rupture Membrane Labor & Delivery Delivery date: 12/21/22 Intrapartal Events: None Cervical ripening method: none Induction method: none Delivery augmentation: pitocin Delivery monitor: external FHT and external uterine Route of delivery: Episiotomy description: None L&D Laceration Description: Perineal - 2nd Degree Delivery repair: chromic (3.0) Quantitative Blood Loss: 700 Anesthesia Type: Epidural Narrative: After prolonged, pre-labor rupture of membranes and steady progression of labor with pitocin augmentation (max dose of 6mu/min), pushing was initiated at anterior lip/C/0. AL was easily reduced with the first push. Coaching and strong maternal efforts led to steady descent of vertex. NSVB of a vigorous baby boy in ZAFAR position. The shoulders delivered without additional maneuvers. was sommersaulted through a single loose nuchal cord and placed on maternal abdomen for drying and skin to skin. Initial temp was elevated and maternal temp was normal at that time. Remaining 30 units of pitocin in 500mL LR was increased to 250mL/hr for active management of the third stage of labor. After cessation of pulsation, the cord was double clamped by CNM and cut by grandmother and friend. Uterine bleeding was brisk with no movement of placenta so pitocin was increased to a bolus and misoprostil 400mcg SL was given. Bleeding slowed, but placenta showed no signs of separation. TXA was ordered and Fentanyl 100mcg was given prior to manual removal of the placenta. Placenta manually removed, intact with apparent calcifications. Fundus immediately firm. A temperature elevation was noted at that time 37.8C/100F. A second degree perineal laceration was repaired with 3.0 chromic in the usual fashion for good approximation and hemostasis. QBL 700mL. Mother and baby stable and skin to skin as I left the room. While consulting [facility]/, maternal temp was rechecked and reached 38.4C/101.3, and antibiotics x 24 hours were ordered with a urine culture and blood cultures. [place] Baby 1: gender: Male Presentation: vertex Position: Right Occiput Anterior Placenta delivery description: Spontaneous Cord Vessel Description: 3 Vessels, Nuchal Cord and Loose score (1 min): 8 score (5 min): 9 weight: 3.304 kg Plan for aftercare: Routine care (with antibiotics x 24 hours for manual removal and fever, placenta to pathology)
--- NOTE | 2022-12-21 20:57 | PATH_ITS ---
[facility] Accession Number: [id number] No. of containers..01 Tissue . 01 Material submitted: . placenta - PLACENTA . 01 Diagnosis: Placenta: Intact young placenta (469.0 grams) with features of maturation consistent with third trimester gestational age. Eccentrically inserted three-vessel umbilical cord; no true knots, thrombi, or funisitis/arteritis. membranes with mild acute chorioamnionitis. Adherent blood clot with histologic features suggestive of abruption (adherent blood clot with intradecidual hemorrhage, intervillous hemorrhage, and accompanying villous necrosis). No acute or chronic villitis. [facility] 12/26/2022 1616 Local . 01 Comment: Clinical correlation is recommended. . 01 Electronically signed: . Danya Tate MD, Pathologist NPI- [id number] . 01 Gross description: . The specimen was received in formalin labeled with the patient's name, , and no additional designation, and consists of a 469 gram discoid young placenta measuring 16.4 x 15.3 x 2.6 cm with no accessory lobes identified. . The membranes are mills and translucent with areas of mills thickening occupying approximately 10% of the membrane surface. The membranes insert and are diffusely ruptured at the margin. . The cord measures 49.1 cm in length by 1.1 cm in average diameter with attached membranes measuring 23.5 x 3.4 x 0.5 cm. The cord inserts eccentrically 3.7 cm from the nearest placental disc edge and is partially detached from the surface. Sectioning reveals unremarkable trivascular architecture with no knots or lesions identified. . The surface is blue-mendez with normal arborizing vasculature and small pale mills areas of discoloration located eccentrically, occupying less than 10% of the surface. . The maternal surface is apparently complete with an area of adherent hemorrhage measuring 13.1 x 7.3 cm and occupying approximately 40% of the maternal surface. No additional discoloration or lesions are identified. Sectioning reveals the adherent hemorrhage to grossly distort the underlying parenchyma which is pale mills and firm. The remaining cut surface is red-mills and spongy with no additional areas of discoloration or lesion identified. . [place] [employer] sections are submitted as follows: A1: Cord and membrane attached to cord. A2: Membrane roll. A3: Full thickness section with adherent hemorrhage, cut surface and surface discolorations. A4-A5: Full thickness sections with adherent hemorrhage and underlying cut surface discoloration. A6-A8: Central full thickness most normal sections. ([id number]) /P[place]DA 12/24/2022 1030 Local . 01 Pathologist provided ICD-10: O41.1230, O45.90 . 01 CPT . 766095 Specimen Comment: A courtesy copy of this report has been sent to [facility] Pathology Performed at: 01 [facility] [address] [place] [address] [id number] MD Jef Crump MD Phone: [phone]
[2022-12-21] MEDS: TRANEXAMIC ACID 1,000 MG in SODIUM CHLORIDE 0.9% 100 ML 200 MG IV (21:18)
[2022-12-21] MEDS: DERMOPLAST SPRAY 20% 60 ML 1 SPRAY TOP (21:19)
[2022-12-21] MEDS: LANOLIN OINT 7 GM 1 APPLIC TOP (21:20)
[2022-12-21] MEDS: SERTRALINE 50 MG TABLET PO (21:20)
[2022-12-21] MEDS: KETOROLAC 30 MG/ML VIAL IV (21:21)
[2022-12-21 21:34] VITALS: TEMP 38.3
[2022-12-21] MEDS: ACETAMINOPHEN 325 MG TABLET 650 MG PO (21:34)
[2022-12-21] MEDS: CLINDAMYCIN 900 MG in SODIUM CHLORIDE 0.9% 100 ML 106 MG IV (22:30)
[2022-12-21] MEDS: GENTAMICIN 250 MG in SODIUM CHLORIDE 0.9% 100 ML 106.25 MG IV (23:45)
[2022-12-22 06:54] LABS: Add Manual Diff / Slide Review NO; Basophils Absolute Auto 0 /uL (0-100); Basophils Percent Auto 0.1 % (0-2); Eosinophils Absolute Auto 0 /uL (0-450); Eosinophils Percent Auto 0.3 % (2-4); Hematocrit 25.8 % (36-46); Hemoglobin 8.8 g/dL (12.0-16.0); Lymphocytes Absolute Auto 1800 /uL (1100-4500); Lymphocytes Percent Auto 10.9 % (25-40); Mean Corpuscular Hemoglobin 28.1 PG (26-34); Mean Corpuscular Volume 82.8 fL (80-100); Monocytes Absolute Auto 800 /uL (0-900); Monocytes Percent Auto 5.1 % (3-14); Neutrophils Absolute Auto 13400 /uL (1500-7000); Neutrophils Percent Auto 83.6 % (50-75); Platelet Count 124 X10^3/uL (150-400); Red Blood Cell Count 3.12 X10^6/uL (4.0-5.2); Red Cell Distribution Width 16.4 % (11.6-14.8); White Blood Cell Count 16.1 X10^3/uL (4.5-11.0)
[2022-12-22] MEDS: CLINDAMYCIN 900 MG/50 ML PIGGYBACK 50 MG IV ×3 (07:00→23:21)
--- NOTE | 2022-12-22 10:14 | P.PNOB_ITS ---
Subjective - OB Subjective Interval history: PPD1: Stable s/p NSVB with 2nd degree perineal laceration and fever. Has been voiding, ambulating and independently. Tolerating a general diet. Minimal pain is well controlled with PO medication, though she declined it throughout the night. Vaginal bleeding is described as period-like, no clots. Exam Vital Signs (past 8 hours): BP 120/74mmhg, HR 72bpm, RR 18/min, T 98.7F Temporal Afebrile overnight Other: Fundus firm @U-1, lochia scant, no clots. Perineum well approximated with moderate edema. Objective Labs 12/22/22 06:43 Labs: Laboratory Results - last 24 hr 12/22/22 06:43 WBC 16.1 H D RBC 3.12 L Hgb 8.8 L Hct 25.8 L MCV 82.8 MCH 28.1 MCHC 34.0 RDW 16.4 H Plt Count 124 L Neut % (Auto) 83.6 H Lymph % (Auto) 10.9 L [place] % (Auto) 5.1 Eos % (Auto) 0.3 L Baso % (Auto) 0.1 Neut # (Auto) 24210 H Lymph # (Auto) 1800 [place] # (Auto) 800 Eos # (Auto) 0 Baso # (Auto) 0 Assessment & Plan Assessment and Plan (1) Anemia, : Status: Acute Assessment and plan: Stable. IV Fe today and another dose tomorrow prior to discharge (2) Fever of unknown origin following delivery, : Status: Acute Assessment and plan: Afebrile, will complete 24 hours of antibiotics Plan day: 1 plan OB: routine care (additions as above) Time Spent With Patient Time: Total time spent is greater than 50% in coordination of care (as documented) at patient's floor/unit and/or counseling patient: Time with patient: less than 15 minutes
[2022-12-22] MEDS: IRON SUCROSE 200 MG in SODIUM CHLORIDE 0.9% 100 ML 220 MG IV (10:40)
[2022-12-22] MEDS: IBUPROFEN 600 MG TABLET PO ×2 (18:37→23:21)
[2022-12-22] MEDS: ACETAMINOPHEN 325 MG TABLET 650 MG PO (23:22)
[2022-12-23] MEDS: ACETAMINOPHEN 325 MG TABLET 650 MG PO (05:05)
[2022-12-23] MEDS: IBUPROFEN 600 MG TABLET PO (05:05)
[2022-12-23] MEDS: CLINDAMYCIN 900 MG/50 ML PIGGYBACK 50 MG IV (07:37)
--- NOTE | 2022-12-23 09:34 | P.DS_ITS ---
Discharge Providers Provider Date of admission: 12/20/22 21:51 Discharge Date: 12/23/22 Primary care physician: Radha RUSH Provider Consults: 12/22/22 20:20 Consult to Improvement Specialist Routine Comment: Discharge provider: Sharmila Garcia CNM, ARNP Summary Hospital Course Date Patient Seen: 12/23/22 Time Patient Seen: 09:34 Diagnoses: Z39.1 - care of lactating mom Anemia r/to hemorrhage 2nd degree laceration, repaired Manual removal of placenta, s/p antibiotics Hospital Course: After prolonged ROM and augmentation with pitocin, resulted over 2nd degree perineal laceration. PPH of 700 mL treated with pitocin, misoprostol, TXA. Manual removal of placenta required, and maternal temp , so anti biotics (clindamycin and gentamycin) given for 24 hours. Iron infusion due to PPH and drop in H&H. . Otherwise normal course; discharged day 2. Peripartum Data Infant Delivery Method: Natural Vaginal Laceration Description: Perineal - 2nd Degree Procedures: Repaired in usual fashion with 2-0 chromic. complications: retained placenta (manually removed; antibiotics for prophylaxis) and other (anemia, treated with iron infusion) Discharge Diagnosis (1) Anemia, : Start Date: 12/21/22 Status: Acute (2) Fever of unknown origin following delivery, : Status: Acute (3) Encounter for care and examination of lactating mother: Status: Acute Status at Discharge Cognitive/behavioral status at discharge: at baseline, oriented Functional status at discharge: independent ambulation Overall status at discharge: patient is progressing back to baseline Time Spent with Patient Time attestation: Total time spent providing and/or coordinating discharge services: Objective Labs 12/22/22 06:43 Exam Vital Signs (past 8 hours): 111/60, 70 bpm, 13 breaths/min, 98.5 F Other: Fundus firm U-1; perineum/vulva mildly edematous Skin General: no rashes or lesions noted Neuro General: patient oriented x3 Extrem Right lower extremity: edema Left lower extremity: edema Discharge Plan Discharge Plan Patient Disposition: Home Provider Discharge Comment: Home with baby Discharge orders & Medications Prescriptions: Continued sertraline 50 mg tablet 50 mg PO DAILY Medication counseling provided by Pharmacist: No Follow up/Referrals: Provider,Radha RUSH [Primary Care Provider] - Michael Mi MD [Physician] - Activity Restrictions/Additional Instructions: Recommend low rich activities for 2 weeks to promote healing. Recommend sitz baths to promote perineal healing, reduction in edema, reduce pain and itching Diet/Activity/Treatments Diet: Diet as Tolerated and Regular Skin/Wound/Dressing Care Report to your healthcare provider any signs of infection, such as:: chills, fever, night sweats, increased pain, unusual drainage and unusual redness Visit Report/Discharge Packet Stand Alone Forms: Patient Portal/API Discharge Data Primary Care Provider: ProviderRadha
[2022-12-23 09:37] LABS: Add Manual Diff / Slide Review NO; Basophils Absolute Auto 0 /uL (0-100); Basophils Percent Auto 0.2 % (0-2); Eosinophils Absolute Auto 200 /uL (0-450); Hematocrit 26.8 % (36-46); Lymphocytes Absolute Auto 2400 /uL (1100-4500); Lymphocytes Percent Auto 15.9 % (25-40); Mean Corpuscular HGB Conc 33.5 % (30-36); Mean Corpuscular Hemoglobin 27.8 PG (26-34); Mean Corpuscular Volume 83.2 fL (80-100); Monocytes Absolute Auto 600 /uL (0-900); Monocytes Percent Auto 4.2 % (3-14); Neutrophils Absolute Auto 11900 /uL (1500-7000); Neutrophils Percent Auto 78.7 % (50-75); Platelet Count 160 X10^3/uL (150-400); Red Blood Cell Count 3.23 X10^6/uL (4.0-5.2); Red Cell Distribution Width 16.9 % (11.6-14.8); White Blood Cell Count 15.2 X10^3/uL (4.5-11.0)
[2022-12-23] MEDS: IRON SUCROSE 300 MG in SODIUM CHLORIDE 0.9% 250 ML 176.667 MG IV (10:20)
[2022-12-23 17:03] VITALS: TEMP 38.3
== END 2022-12-23 15:50 | disposition home or self-care (01) | DRG 806 ==
PROVIDERS: Admitting Provider Nurse Practitioner Obstetrics & Gynecology; Referring Provider Nurse Practitioner Obstetrics & Gynecology; Visit Provider Nurse Practitioner Obstetrics & Gynecology
DX: O42.12 Full-term premature rupture of membranes, onset of labor more than 24 hours following rupture (principal); O72.0 Third-stage hemorrhage; Z37.0 Single live birth; O86.4 Pyrexia of unknown origin following delivery; O90.81 Anemia of the puerperium; D50.0 Iron deficiency anemia secondary to blood loss (chronic); Z3A.38 38 weeks gestation of pregnancy; O70.1 Second degree perineal laceration during delivery
CPT/HCPCS: 36415; 59050; 84112; 85025; 86850; 86900; 86901; 87040; 87086; G0379; J1756; J1885; J2590; J3010; S0077; S0191